=== PATIENT | female | born 1980 | race Caucasian/White ===

== ENCOUNTER 2020-12-16 05:08 | Emergency (ER) | payer MEDICAID ==
[~2020-12-16] VITALS: Ht 170.2 cm; Wt 90.0 kg
[2020-12-16 05:26] VITALS: BP 150/121
[2020-12-16] MEDS ORDERED: HYDROXYZINE 25MG TABLET PO ONE (05:30)
[2020-12-16] MEDS ORDERED: HYDR-459 MT (05:43)
== END 2020-12-16 05:58 | disposition home or self-care (01) ==
LOC: ER 05:08
DX: F41.9 Anxiety disorder, unspecified (principal); R00.2 Palpitations; F45.8 Other somatoform disorders; R06.00 Dyspnea, unspecified
CPT/HCPCS: 93005; 99283